=== PATIENT | female | born 1955 | race Caucasian/White ===

== ENCOUNTER → 2016-10-17 | Outpatient (CLI) | payer BC ==
[~2016-10-17] MED LIST: FLUO10CA13 PO; MULT-658 PO; OMEP-110 PO; biotin PO; vitamin c PO; vitamin d PO
[2016-10-17 15:30] LABS: HEMATOCRIT 43.4 % (34.6-47.8); HEMOGLOBIN 14.6 g/dL (11.7-16.4); WHITE BLOOD COUNT 9.3 x10^3/uL (3.4-10)
[2016-10-17 15:36] LABS: BLOOD UREA NITROGEN 13 mg/dL (7-18)
== END | disposition home or self-care (01) ==
LOC: MERGE 13:30 → STAR 13:36
PROVIDERS: ATTEND Orthopaedic Surgery
DX: Z01.818 Encounter for other preprocedural examination (principal); M17.12 Unilateral primary osteoarthritis, left knee
CPT/HCPCS: 36415; 80048; 81003; 85025; 87081; 87147; 93005